=== PATIENT | female | born 2000 | race Caucasian/White ===

== ENCOUNTER 2019-12-09 20:56 | Emergency (ER) | payer OTHER, MEDICAID ==
[2019-12-09] MEDS ORDERED: DOXYCYCLINE HYCLATE 100MG TABLET As Ordered ONE (23:00)
[2020-01-17 11:43] LABS: Lyme Disease IgG/IgM Antibodie See Separate Report
== END 2019-12-09 23:10 | disposition home or self-care (01) ==
LOC: M ED 20:56
DX: S20.362A Insect bite (nonvenomous) of left front wall of thorax, initial encounter (principal); W57.XXXA Bitten or stung by nonvenomous insect and other nonvenomous arthropods, initial encounter

== ENCOUNTER → 2020-04-03 | Outpatient (CLI) | payer SELFPAY | LOC: EEVIPCON 16:40 → M LABCAHC 16:40 | PROVIDERS: ATTEND Pediatrics | DX: Z11.59 Encounter for screening for other viral diseases (principal) ==